=== PATIENT | male | born 1975 | race African-American/Black ===

== ENCOUNTER 2017-07-06 22:22 | Inpatient (IN) | payer OTHER ==
[~2017-07-06] VITALS: Ht 195.6 cm; Wt 92.5 kg
[2017-07-06 23:28] LABS: BASOPHILS % 0.5 % (0.0-2.0); EOSINOPHILS % 1.2 % (0.0-5.0); HEMOGLOBIN. 15.1 g/dL (14.0-18.0); LYMPHOCYTES % 14.1 % (20.0-50.0); MEAN CORPUSCULAR HEMOGLOBIN 29.2 pg (28.0-32.0); MEAN CORPUSCULAR VOLUME 87.3 fL (80.0-94.0); MEAN PLATELET VOLUME 8.9 fl (7.4-10.4); MONOCYTES % 6.3 % (2.0-8.0); NEUTROPHILS % 77.9 % (40.0-76.0); PLATELET 221 x1000/uL (130-400); RED BLOOD CELL COUNT 5.16 mill/uL (4.7-6.1); RED CELL DISTRIBUTION WIDTH 14.9 % (11.6-14.6)
[2017-07-06 23:35] LABS: D-DIMER 2.02 mg/L FEU (<0.50); INR 1.1; PARTIAL THROMBOPLASTIN TIME 26.8 sec (23.4-31.0); PROTHROMBIN TIME 11.5 sec (9.4-11.6)
[2017-07-06 23:41] LABS: CARBON DIOXIDE 25 mEq/L (21-32); CHLORIDE 106 mEq/L (98-107); CREATINE KINASE 564 IU/L (39-308); ETHANOL BLOOD 58 mg/dL; TROPONIN I 0.12 ng/mL (0.00-0.04)
[2017-07-07] MEDS ORDERED: ASPIRIN 81MG TABLET PO ONE (00:15)
[2017-07-07] MEDS ORDERED: ENOXAPARIN 80MG/0.8ML SYR SUBCUT ONE (00:30)
[2017-07-07] MEDS ORDERED: ZOLPIDEM TARTRATE 5MG TABLET PO PRN (00:45)
[2017-07-07] MEDS ORDERED: MAGNESIUM/ALUMINUM HYDROXIDE/SIMETHICONE 30ML UDC PO PRN (00:45)
[2017-07-07] MEDS ORDERED: IPRATROPIUM/ALBUTEROL 0.5-3(2.5)MG/3ML NEB INH PRN (00:45)
[2017-07-07] MEDS ORDERED: DOCUSATE SODIUM 100MG CAPSULE PO PRN (00:45)
[2017-07-07] MEDS ORDERED: LORAZEPAM 2MG/ML CPJ IV PRN (00:45)
[2017-07-07] MEDS ORDERED: KETOROLAC 15MG/ML VIAL IV PRN (00:45)
[2017-07-07] MEDS ORDERED: CLONIDINE 0.1MG TABLET PO PRN (00:45)
[2017-07-07] MEDS ORDERED: ONDANSETRON HCL 4MG/2ML VIAL IV PRN (00:45)
[2017-07-07] MEDS ORDERED: GUAIFENESIN 200MG/10ML SUGAR FREE UDC PO PRN (00:45)
[2017-07-07] MEDS ORDERED: ACETAMINOPHEN 325MG TABLET PO PRN (00:45)
[2017-07-07] MEDS ORDERED: NITROGLYCERIN 0.4MG TABLET SL SL PRN (00:45)
[2017-07-07] MEDS ORDERED: NA PHOS,M-B/NA PHOS,DI-BA ENEMA 118ML PR PRN (00:45)
[2017-07-07 01:07] LABS: *AMPHETAMINES SCREEN URINE NEGATIVE (NEGATIVE); *BARBITURATES SCREEN URINE NEGATIVE (NEGATIVE); *BENZODIAZEPINES SCREEN URINE NEGATIVE (NEGATIVE); *COCAINE SCREEN URINE PRESUMTIVE POSITIVE (NEGATIVE); CANNABINOID URINE SCREEN NEGATIVE (NEGATIVE); METHADONE URINE SCREEN NEGATIVE (NEGATIVE); OPIATES URINE SCREEN NEGATIVE (NEGATIVE); PHENCYCLIDINE URINE SCREEN NEGATIVE (NEGATIVE)
[2017-07-07 02:15] VITALS: BP 165/103
[2017-07-07] MEDS ORDERED: LOV40 SQ (03:01)
[2017-07-07] MEDS ORDERED: CARV3.1242 PO (03:01)
[2017-07-07] MEDS ORDERED: FURO-152 PO (03:01)
[2017-07-07] MEDS: HYDRALAZINE HCL 50MG TABLET PO SCH ×2 (03:08→13:55)
[2017-07-07 04:00] VITALS: BP 153/66
[2017-07-07 06:51] LABS: TROPONIN I 0.12 ng/mL (0.00-0.04)
[2017-07-07 07:05] LABS: CREATINE KINASE MB FRACTION 5.5 ng/mL (0.5-3.6)
[2017-07-07 08:00] VITALS: BP 156/97
[2017-07-07] MEDS ORDERED: ENOXAPARIN 40MG/0.4ML SYR SUBCUT SCH (09:00)
[2017-07-07] MEDS ORDERED: AMLODIPINE 10MG TABLET PO SCH (09:00)
[2017-07-07] MEDS ORDERED: FAMOTIDINE 20MG/2ML VIAL IV SCH (09:00)
[2017-07-07] MEDS ORDERED: ASPIRIN 325MG EC TABLET PO SCH (09:00)
[2017-07-07 09:40] VITALS: BP 149/91
[2017-07-07 11:51] VITALS: BP 146/90
[2017-07-07 12:00] VITALS: BP 146/90
== END 2017-07-07 16:41 | disposition home or self-care (01) | DRG 203 ==
LOC: ER 23:02 → 7WST 07-07 00:28 → EDBEDREQ 07-07 00:35 → ENRESERV 07-07 01:31
PROVIDERS: ADMIT Internal Medicine; ATTEND Internal Medicine
DX: R07.89 Other chest pain (principal); N17.0 Acute kidney failure with tubular necrosis; I10 Essential (primary) hypertension; F10.10 Alcohol abuse, uncomplicated; F14.10 Cocaine abuse, uncomplicated; Z86.711 Personal history of pulmonary embolism; Z87.891 Personal history of nicotine dependence
CPT/HCPCS: 36415; 71010; 78582; 80053; 80061; 80305; 82550; 82553; 83036; 83690; 83880; 84443; 84484; 85025; 85379; 85610; 85730; 93005; 93970; 99285; A9558; G0482; J1650; J3490